=== PATIENT | female | born 1945 | race Caucasian/White ===

== ENCOUNTER 2021-09-27 11:10 | Inpatient (IN) | payer OTHER, SELFPAY ==
[~2021-09-27] VITALS: Ht 165.1 cm; Wt 59.0 kg
[~2021-09-27 11:10] MED LIST: AMLO5TAB4 PO; CELE100C PO; LOSA1TAB40 PO; METO50TA7 PO; RIVA20TA PO; TRAM50TA2 PO
[2021-09-27 11:12] VITALS: BP_SYST 104
[2021-09-27 12:01] LABS: HEMATOCRIT 27.6 % (36-48); MEAN CORPUSCULAR VOLUME 94 fL (79.0-98.0)
[2021-09-27 12:08] LABS: BASOPHILS % (AUTO) 0.2 % (0.0-2.0); EOSINOPHILS % (AUTO) 0.1 % (0.0-4.0); HEMOGLOBIN 9.2 g/dL (12.0-16.0); LYMPHOCYTES # (AUTO) 1.5 K/uL (1.0-5.5); LYMPHOCYTES % (AUTO) 15.7 % (20.5-51.5); MEAN CORPUSCULAR HEMOGLOBIN 32 pg (27-31); MEAN CORPUSCULAR HGB CONC 33 % (32-36); MONOCYTES # (AUTO) 0.7 K/uL (0.0-1.0); MONOCYTES % (AUTO) 7.5 % (1.7-9.3); NEUTROPHILS # (AUTO) 7.3 K/uL (1.8-7.7); NEUTROPHILS % (AUTO) 76.5 % (40.0-70.0); PLATELET COUNT (AUTO) 322 K/uL (130-430); RED BLOOD CELL COUNT(AUTO) 2.93 MIL/uL (4.2-6.2); RED CELL DISTRIBUTION WIDTH 14.7 % (9.0-15.0); WHITE BLOOD COUNT (AUTO) 9.6 K/uL (4.8-10.8)
[2021-09-27 12:13] LABS: ANION GAP 6 (5-15); CALCIUM 10.3 mg/dL (8.4-11.0); CHLORIDE 99 mmol/L (98-107); CREATININE 0.71 mg/dL (0.55-1.30); GLUCOSE 98 mg/dL (70-99); POTASSIUM 3.2 mmol/L (3.5-5.1); SODIUM SERUM 132 mmol/L (136-145); UREA NITROGEN, BLOOD 36 mg/dL (8-21)
[2021-09-27 12:20] LABS: ALANINE AMINOTRANSFERASE 17 U/L (12-78); ALBUMIN 2.7 g/dL (3.4-4.8); ASPARTATE AMINOTRANSFERASE 14 U/L (10-37); TOTAL BILIRUBIN 0.8 mg/dL (0.0-1.0)
[2021-09-27] MEDS ORDERED: MORPHINE 4 MG INJ. 4 MG/ML VIAL IVP ONE (12:30)
[2021-09-27] MEDS ORDERED: PROCHLORPERAZINE EDISYLATE 10 MG/2 ML VIAL IVP ONE (12:30)
[2021-09-27] MEDS ORDERED: HYDROmorphone 1 MG/ML INJ. CARTRIDGE IVP PRN (13:15)
[2021-09-27] MEDS ORDERED: ONDANSETRON 4 MG ODT TAB PO PRN (13:15)
[2021-09-27] MEDS ORDERED: D5LR 1,000 ML IV SCH (13:15)
[2021-09-27] MEDS ORDERED: KCL 20 mEq in 100 mL (PREMIX) 100 ML IV ONE (14:00)
[2021-09-27] MEDS ORDERED: KCL 20 mEq in D5/0.45NS 1000mL 1,000 ML IV SCH (14:00)
[2021-09-27] MEDS ORDERED: POTASSIUM CHLORIDE 20 MEQ in D5LR 1,000 ML IV ONE (14:15)
[2021-09-27 15:35] VITALS: BP_SYST 101
[2021-09-27] MEDS ORDERED: COMMUNICATION ORDER XX ONE (18:15)
[2021-09-27 20:50] VITALS: BP_SYST 111
[2021-09-27 20:55] VITALS: BP_SYST 111
[2021-09-28 00:20] VITALS: BP_SYST 105
[2021-09-28] MEDS: D5LR 1,000 ML IV SCH ×2 (00:40→14:54)
[2021-09-28 03:30] LABS: BILIRUBIN,URINE NEGATIVE (NEGATIVE); BLOOD, URINE 3+ (NEGATIVE); CLARITY/URINE CLEAR (CLEAR); COLOR,URINE YELLOW (YELLOW); GLUCOSE,URINE NEGATIVE (NEGATIVE); KETONES,URINE NEGATIVE (NEGATIVE); LEUKOCYTE ESTERASE ,URINE 1+ (NEGATIVE); NITRITE, URINE NEGATIVE (NEGATIVE); PROTEIN URINE TRACE (NEGATIVE)
[2021-09-28 04:10] LABS: RBC,URINE 20-50 /HPF (0-3); URINE SULFO SALICYLIC ACID NEGATIVE (NEGATIVE)
[2021-09-28 04:11] LABS: BACTERIA,URINE None Seen /HPF (None Seen); CALCIUM OXALATE CRYSTALS,UR None Seen /HPF (None Seen); CALCIUM PHOSPHATE CRYSTALS,UR None Seen /HPF (None Seen); COARSE GRANULAR CASTS,URINE None Seen /LPF (None Seen); FINE GRANULAR CASTS,URINE None Seen /LPF (None Seen); MUCUS,URINE 1+ /LPF (None Seen); OTHER CASTS, URINE None Seen /LPF (None Seen); OTHER CRYSTALS,URINE None Seen /HPF (None Seen); TRICHOMONAS,URINE None Seen /HPF (None Seen); TRIPLE PHOSPHATE CRYSTAL,UR None Seen /HPF (None Seen); URINE AMORPHOUS PHOSPHATES None Seen /HPF (None Seen); WAXY CASTS,URINE None Seen /LPF (None Seen); WBC,URINE >100 /HPF (0-3); YEAST,URINE None Seen /HPF (None Seen)
[2021-09-28 07:35] LABS: INR 1.4 (0.8-1.2); PROTHROMBIN TIME 14.2 SECS (9.5-12.5)
[2021-09-28 08:00] VITALS: BP_SYST 111
[2021-09-28 08:42] LABS: ANION GAP 9 (5-15); CALCIUM 10.2 mg/dL (8.4-11.0); CHLORIDE 101 mmol/L (98-107); CREATININE 0.45 mg/dL (0.55-1.30); GLUCOSE 111 mg/dL (70-99); POTASSIUM 3.2 mmol/L (3.5-5.1); SODIUM SERUM 136 mmol/L (136-145); UREA NITROGEN, BLOOD 24 mg/dL (8-21)
[2021-09-28] MEDS ORDERED: POTASSIUM CHLORIDE 20 MEQ TAB.PRT.SR PO PRN (08:45)
[2021-09-28] MEDS ORDERED: DOCUSATE SODIUM 100 MG CAPSULE PO PRN (08:45)
[2021-09-28] MEDS ORDERED: MAGNESIUM SULFATE 50 ML IV PRN (08:45)
[2021-09-28] MEDS ORDERED: MORPHINE 2 MG/ML INJ. SYRINGE IVP PRN ×2 (08:45)
[2021-09-28] MEDS ORDERED: MUPIROCIN 2% TOPICAL OINTMENT 22 GM NS PRN (08:45)
[2021-09-28] MEDS ORDERED: ONDANSETRON HCL 4 MG/2 ML VIAL IVP PRN (08:45)
[2021-09-28] MEDS ORDERED: ZOLPIDEM TARTRATE 5 MG TABLET PO PRN (08:45)
[2021-09-28] MEDS ORDERED: ACETAMINOPHEN 325 MG TABLET PO PRN ×2 (08:45→09:45)
[2021-09-28] MEDS ORDERED: LORazepam 2 MG/ML VIAL IVP PRN (08:45)
[2021-09-28] MEDS ORDERED: NALOXONE HCL 0.4 MG/ML AMP (NARCAN) IVP PRN ×2 (08:45)
[2021-09-28] MEDS: cefTRIAXone 1 GM in D5W 50 ML IV SCH (09:00)
[2021-09-28] MEDS ORDERED: DEXAMETHASONE SOD PHOSPHATE 4 MG/ML VIAL IVP ONE (10:17)
[2021-09-28] MEDS ORDERED: ONDANSETRON HCL 4 MG/2 ML VIAL IVP ONE (10:17)
[2021-09-28] MEDS ORDERED: SUCCINYLCHOLINE CHLORIDE 20 MG/ML(QUELICIN) IVP ONE (10:17)
[2021-09-28] MEDS ORDERED: cefTRIAXone 1 GM VIAL IV ONE (10:17)
[2021-09-28] MEDS ORDERED: PROPOFOL 200MG/ 20ML VIAL (DIPRIVAN) IV ONE (10:17)
[2021-09-28] MEDS ORDERED: LR 1,000 ML IV.SOLN IV ONE (10:17)
[2021-09-28] MEDS ORDERED: DESFLURANE 15 MIN GAS INH ONE (10:17)
[2021-09-28] MEDS ORDERED: ACETAMINOPHEN I.V. 1000 MG 100 ML IV ONE (10:48)
[2021-09-28 12:22] VITALS: BP_SYST 132
[2021-09-28 13:49] LABS: TOTAL IRON BIND. CAPACITY 172 ug/dL (250-450)
[2021-09-28 16:35] VITALS: BP_SYST 124
[2021-09-28] MEDS: VANCOMYCIN HCL 1,000 MG in NS 250 ML IV SCH (18:05)
[2021-09-28] MEDS ORDERED: CELECOXIB 100 MG CAPSULE PO SCH (21:00)
[2021-09-28] MEDS: traMADol HCL HCL 50 MG TABLET (ULTRAM) PO PRN (22:02)
[2021-09-29 01:33] VITALS: BP_SYST 130
[2021-09-29] MEDS: D5LR 1,000 ML IV SCH ×3 (04:42→16:30)
[2021-09-29] MEDS: traMADol HCL HCL 50 MG TABLET (ULTRAM) PO PRN (04:49)
[2021-09-29 06:06] LABS: FOLATE (FOLIC ACID) 18.1 ng/mL (>3.0)
[2021-09-29 07:49] LABS: BASOPHILS % (AUTO) 0.2 % (0.0-2.0); EOSINOPHILS # (AUTO) 0.1 K/uL (0.0-0.4); EOSINOPHILS % (AUTO) 0.7 % (0.0-4.0); HEMOGLOBIN 8.1 g/dL (12.0-16.0); LYMPHOCYTES # (AUTO) 1.3 K/uL (1.0-5.5); LYMPHOCYTES % (AUTO) 13.4 % (20.5-51.5); MEAN CORPUSCULAR HEMOGLOBIN 32 pg (27-31); MEAN CORPUSCULAR HGB CONC 34 % (32-36); MEAN CORPUSCULAR VOLUME 94 fL (79.0-98.0); MONOCYTES # (AUTO) 0.6 K/uL (0.0-1.0); MONOCYTES % (AUTO) 6.6 % (1.7-9.3); NEUTROPHILS # (AUTO) 7.7 K/uL (1.8-7.7); NEUTROPHILS % (AUTO) 79.1 % (40.0-70.0); PLATELET COUNT (AUTO) 274 K/uL (130-430); RED BLOOD CELL COUNT(AUTO) 2.55 MIL/uL (4.2-6.2); RED CELL DISTRIBUTION WIDTH 15.5 % (9.0-15.0); WHITE BLOOD COUNT (AUTO) 9.8 K/uL (4.8-10.8)
[2021-09-29 07:54] LABS: ANION GAP 6 (5-15); CALCIUM 10.3 mg/dL (8.4-11.0); CHLORIDE 106 mmol/L (98-107); CREATININE 0.36 mg/dL (0.55-1.30); GLUCOSE 93 mg/dL (70-99); POTASSIUM 3.6 mmol/L (3.5-5.1); SODIUM SERUM 138 mmol/L (136-145); UREA NITROGEN, BLOOD 18 mg/dL (8-21)
[2021-09-29 08:00] VITALS: BP_SYST 117
[2021-09-29] MEDS: amLODIPine BESYLATE 5 MG TABLET PO SCH (08:54)
[2021-09-29] MEDS: METOPROLOL SUCCINATE 50 MG TAB.SR.24H (TOPROL XL) PO SCH (08:54)
[2021-09-29] MEDS: RIVAROXABAN 10 MG TABLET PO SCH (08:56)
[2021-09-29] MEDS: cefTRIAXone 1 GM in D5W 50 ML IV SCH (10:49)
[2021-09-29 12:00] VITALS: BP_SYST 101
[2021-09-29] MEDS: LOSARTAN POTASSIUM 50 MG TABLET (COZAAR) PO SCH (13:08)
[2021-09-29] MEDS: HYDROCHLOROTHIAZIDE 25 MG TABLET (HCTZ) PO SCH (13:09)
[2021-09-29 16:56] VITALS: BP_SYST 106
[2021-09-29] MEDS: VANCOMYCIN HCL 1,000 MG in NS 250 ML IV SCH (18:30)
[2021-09-29 20:12] LABS: BILIRUBIN,URINE NEGATIVE (NEGATIVE); BLOOD, URINE 1+ (NEGATIVE); COLOR,URINE YELLOW (YELLOW); GLUCOSE,URINE NEGATIVE (NEGATIVE); KETONES,URINE NEGATIVE (NEGATIVE); LEUKOCYTE ESTERASE ,URINE NEGATIVE (NEGATIVE); NITRITE, URINE NEGATIVE (NEGATIVE); PROTEIN URINE NEGATIVE (NEGATIVE)
[2021-09-29 20:31] LABS: CLARITY/URINE HAZY (CLEAR)
[2021-09-29 20:55] LABS: BACTERIA,URINE MODERATE /HPF (None Seen); RBC,URINE 50-80 /HPF (0-3); WBC,URINE 0-3 /HPF (0-3)
[2021-09-30 00:02] VITALS: BP_SYST 110
[2021-09-30] MEDS: D5LR 1,000 ML IV SCH ×3 (03:09→22:57)
[2021-09-30 04:00] VITALS: BP_SYST 121
[2021-09-30 07:00] LABS: BASOPHILS % (AUTO) 0.5 % (0.0-2.0); EOSINOPHILS # (AUTO) 0.3 K/uL (0.0-0.4); EOSINOPHILS % (AUTO) 4.8 % (0.0-4.0); HEMATOCRIT 24.5 % (36-48); HEMOGLOBIN 8.3 g/dL (12.0-16.0); LYMPHOCYTES # (AUTO) 1.9 K/uL (1.0-5.5); LYMPHOCYTES % (AUTO) 26.4 % (20.5-51.5); MEAN CORPUSCULAR HEMOGLOBIN 32 pg (27-31); MEAN CORPUSCULAR HGB CONC 34 % (32-36); MEAN CORPUSCULAR VOLUME 95 fL (79.0-98.0); MONOCYTES # (AUTO) 0.5 K/uL (0.0-1.0); NEUTROPHILS # (AUTO) 4.3 K/uL (1.8-7.7); NEUTROPHILS % (AUTO) 61.3 % (40.0-70.0); PLATELET COUNT (AUTO) 268 K/uL (130-430); RED BLOOD CELL COUNT(AUTO) 2.58 MIL/uL (4.2-6.2); RED CELL DISTRIBUTION WIDTH 15.7 % (9.0-15.0); WHITE BLOOD COUNT (AUTO) 7.1 K/uL (4.8-10.8)
[2021-09-30 08:12] LABS: ANION GAP 7 (5-15); CALCIUM 9.8 mg/dL (8.4-11.0); CHLORIDE 104 mmol/L (98-107); GLUCOSE 91 mg/dL (70-99); POTASSIUM 3.7 mmol/L (3.5-5.1); SODIUM SERUM 136 mmol/L (136-145); UREA NITROGEN, BLOOD 16 mg/dL (8-21)
[2021-09-30 08:15] VITALS: BP_SYST 129
[2021-09-30] MEDS ORDERED: BALSAM PERU/CASTOR OIL 56.7 GM OINT...G. TP SCH (09:00)
[2021-09-30] MEDS: LOSARTAN POTASSIUM 50 MG TABLET (COZAAR) PO SCH (09:22)
[2021-09-30] MEDS: HYDROCHLOROTHIAZIDE 25 MG TABLET (HCTZ) PO SCH (09:23)
[2021-09-30] MEDS: METOPROLOL SUCCINATE 50 MG TAB.SR.24H (TOPROL XL) PO SCH (09:23)
[2021-09-30] MEDS: amLODIPine BESYLATE 5 MG TABLET PO SCH (09:24)
[2021-09-30] MEDS: cefTRIAXone 1 GM in D5W 50 ML IV SCH (09:25)
[2021-09-30] MEDS: RIVAROXABAN 10 MG TABLET PO SCH (09:29)
[2021-09-30] MEDS: traMADol HCL HCL 50 MG TABLET (ULTRAM) PO PRN ×3 (10:50→22:07)
[2021-09-30 11:30] VITALS: BP_SYST 117
[2021-09-30 15:40] VITALS: BP_SYST 109
[2021-09-30] MEDS: VANCOMYCIN HCL 1,000 MG in NS 250 ML IV SCH (18:40)
[2021-09-30 20:00] VITALS: BP_SYST 136
[2021-10-01 01:00] VITALS: BP_SYST 122
[2021-10-01] MEDS: traMADol HCL HCL 50 MG TABLET (ULTRAM) PO PRN (04:48)
[2021-10-01 07:07] LABS: ANION GAP 4 (5-15); CALCIUM 9.7 mg/dL (8.4-11.0); CHLORIDE 101 mmol/L (98-107); CREATININE 0.41 mg/dL (0.55-1.30); GLUCOSE 88 mg/dL (70-99); POTASSIUM 3.1 mmol/L (3.5-5.1); SODIUM SERUM 134 mmol/L (136-145); UREA NITROGEN, BLOOD 13 mg/dL (8-21)
[2021-10-01 07:56] LABS: BASOPHILS % (AUTO) 0.5 % (0.0-2.0); EOSINOPHILS # (AUTO) 0.3 K/uL (0.0-0.4); EOSINOPHILS % (AUTO) 5.3 % (0.0-4.0); HEMATOCRIT 24.3 % (36-48); HEMOGLOBIN 8.3 g/dL (12.0-16.0); LYMPHOCYTES # (AUTO) 1.4 K/uL (1.0-5.5); LYMPHOCYTES % (AUTO) 22.5 % (20.5-51.5); MEAN CORPUSCULAR HEMOGLOBIN 32 pg (27-31); MEAN CORPUSCULAR HGB CONC 34 % (32-36); MEAN CORPUSCULAR VOLUME 94 fL (79.0-98.0); MONOCYTES # (AUTO) 0.5 K/uL (0.0-1.0); MONOCYTES % (AUTO) 7.6 % (1.7-9.3); NEUTROPHILS # (AUTO) 3.9 K/uL (1.8-7.7); NEUTROPHILS % (AUTO) 64.1 % (40.0-70.0); PLATELET COUNT (AUTO) 265 K/uL (130-430); RED BLOOD CELL COUNT(AUTO) 2.58 MIL/uL (4.2-6.2); RED CELL DISTRIBUTION WIDTH 15.3 % (9.0-15.0); WHITE BLOOD COUNT (AUTO) 6.1 K/uL (4.8-10.8)
[2021-10-01 08:00] VITALS: BP_SYST 116
[2021-10-01] MEDS: METOPROLOL SUCCINATE 50 MG TAB.SR.24H (TOPROL XL) PO SCH (09:06)
[2021-10-01] MEDS: LOSARTAN POTASSIUM 50 MG TABLET (COZAAR) PO SCH (09:07)
[2021-10-01] MEDS: amLODIPine BESYLATE 5 MG TABLET PO SCH (09:07)
[2021-10-01] MEDS: cefTRIAXone 1 GM in D5W 50 ML IV SCH (09:09)
[2021-10-01] MEDS: HYDROCHLOROTHIAZIDE 25 MG TABLET (HCTZ) PO SCH (09:09)
[2021-10-01] MEDS: D5LR 1,000 ML IV SCH (09:10)
[2021-10-01] MEDS: RIVAROXABAN 10 MG TABLET PO SCH (09:13)
[2021-10-01 10:26] VITALS: BP_SYST 116
[2021-10-01 11:24] VITALS: BP_SYST 101
== END 2021-10-01 11:45 | DRG 537 ==
LOC: SED 11:10 → SMU 13:02 → STU 09-28 09:54 → SMU 09-29 16:38
PROVIDERS: ADMIT General Practice; ATTEND General Practice
PROC: 0QS7XZZ Reposition Left Upper Femur, External Approach (ICD-10-PCS; principal; 2021-09-28 10:17)
DX: S73.005A Unspecified dislocation of left hip, initial encounter (principal); L89.154 Pressure ulcer of sacral region, stage 4; E44.0 Moderate protein-calorie malnutrition; N39.0 Urinary tract infection, site not specified; E87.1 Hypo-osmolality and hyponatremia; T84.021A Dislocation of internal left hip prosthesis, initial encounter; D63.8 Anemia in other chronic diseases classified elsewhere; E87.6 Hypokalemia; F02.80 Dementia in other diseases classified elsewhere, unspecified severity, without behavioral disturbance, psychotic disturbance, mood disturbance, and anxiety; G30.9 Alzheimer's disease, unspecified; I10 Essential (primary) hypertension; M16.0 Bilateral primary osteoarthritis of hip; M17.0 Bilateral primary osteoarthritis of knee; X58.XXXA Exposure to other specified factors, initial encounter; B96.20 Unspecified Escherichia coli [E. coli] as the cause of diseases classified elsewhere; Z96.641 Presence of right artificial hip joint; Z20.822 Contact with and (suspected) exposure to COVID-19; Z79.01 Long term (current) use of anticoagulants; Z79.899 Other long term (current) drug therapy; Y93.89 Activity, other specified; Y92.89 Other specified places as the place of occurrence of the external cause; Y99.8 Other external cause status; Z68.21 Body mass index [BMI] 21.0-21.9, adult
CPT/HCPCS: 36415; 71045; 72170-TC; 73501; 74018; 76770; 78315; 80048; 80053; 81000; 82607; 82728; 82746; 83036; 83540; 83550; 83735; 83880; 85025; 85610-TC; 85730-TC; 86886; 86900; 86901; 87081; 87086; 94010; 96374; 96375; 97110-GP; 97116-GP; 97163-GP; 97530-GP; 99285; A9503; G0378; J0131; J0330; J0696; J0780; J1100; J2270; J2405; J2704; J3370; J3480; J7050; J7060; J7120

== ENCOUNTER 2023-02-28 16:40 | Inpatient (IN) | payer OTHER ==
[~2023-02-28] VITALS: Ht 165.1 cm; Wt 53.8 kg
[~2023-02-28 16:40] MED LIST changes: -AMLO5TAB4 PO; -CELE100C PO; +DONE10TA44 PO; +ESCI10TA PO; +HYDR25TA4 PO; +LOSA100T4 PO; -LOSA1TAB40 PO; +MEMA10TA PO; +POTA-88 PO
[2023-02-28 16:55] VITALS: BP_SYST 105; PULSE 68; RESP 19; TEMP 98; O2SAT 99
[2023-02-28] MEDS ORDERED: KETOROLAC TROMETHAMINE 30 MG VIAL IVP ONE (17:30)
[2023-02-28] MEDS ORDERED: NACL 0.9% 1,000 ML IV ONE (17:30)
[2023-02-28 18:38] LABS: BASOPHILS # (AUTO) 0.1 K/uL (0.0-0.2); BASOPHILS % (AUTO) 0.5 % (0.0-2.0); EOSINOPHILS # (AUTO) 0.1 K/uL (0.0-0.4); EOSINOPHILS % (AUTO) 0.9 % (0.0-4.0); HEMATOCRIT 33.2 % (36-48); INR 1.5 (0.8-1.2); LYMPHOCYTES # (AUTO) 1.7 K/uL (1.0-5.5); LYMPHOCYTES % (AUTO) 14.8 % (20.5-51.5); MEAN CORPUSCULAR HEMOGLOBIN 31 pg (27-31); MEAN CORPUSCULAR HGB CONC 33 % (32-36); MEAN CORPUSCULAR VOLUME 92 fL (79.0-98.0); MONOCYTES # (AUTO) 0.5 K/uL (0.0-1.0); MONOCYTES % (AUTO) 4.3 % (1.7-9.3); NEUTROPHILS # (AUTO) 8.9 K/uL (1.8-7.7); NEUTROPHILS % (AUTO) 79.5 % (40.0-70.0); PLATELET COUNT (AUTO) 177 K/uL (130-430); PROTHROMBIN TIME 15.4 SECS (9.5-12.5); RED CELL DISTRIBUTION WIDTH 16.3 % (9.0-15.0); WHITE BLOOD COUNT (AUTO) 11.2 K/uL (4.8-10.8)
[2023-02-28 18:49] LABS: ALANINE AMINOTRANSFERASE 8 U/L (12-78); ALBUMIN 3.2 g/dL (3.4-4.8); ANION GAP 10 (5-15); ASPARTATE AMINOTRANSFERASE 17 U/L (10-37); CALCIUM 9.8 mg/dL (8.4-11.0); CARBON DIOXIDE 29 mmol/L (23-29); CHLORIDE 95 mmol/L (98-107); CREATININE 0.23 mg/dL (0.55-1.30); GLUCOSE 111 mg/dL (74-106); SODIUM SERUM 134 mmol/L (136-145); TOTAL BILIRUBIN 2.2 mg/dL (0.0-1.0); TOTAL PROTEIN, SERUM 6.9 g/dL (6.4-8.3); UREA NITROGEN, BLOOD 7 mg/dL (8-21)
[2023-02-28 18:51] LABS: POTASSIUM 2.7 mmol/L (3.5-5.1)
[2023-02-28 18:53] LABS: BILIRUBIN,URINE NEGATIVE (NEGATIVE); BLOOD, URINE 2+ (NEGATIVE); CLARITY/URINE CLOUDY (CLEAR); COLOR,URINE YELLOW (YELLOW); GLUCOSE,URINE NEGATIVE (NEGATIVE); KETONES,URINE NEGATIVE (NEGATIVE); LEUKOCYTE ESTERASE ,URINE 2+ (NEGATIVE); NITRITE, URINE NEGATIVE (NEGATIVE); PH,URINE 7.5 (5.0-8.0); PROTEIN URINE NEGATIVE (NEGATIVE); UROBILINOGEN,URINE 0.2 (0.2-1.0)
[2023-02-28 18:54] LABS: BACTERIA,URINE MANY /HPF (None Seen); WBC,URINE 50-80 /HPF (0-3)
[2023-02-28] MEDS ORDERED: MEGE400O4 PO (19:49)
[2023-02-28] MEDS ORDERED: MAGNESIUM SULFATE 50 ML IV PRN (20:45)
[2023-02-28] MEDS ORDERED: ZOLPIDEM TARTRATE 5 MG TABLET PO PRN (20:45)
[2023-02-28] MEDS ORDERED: LORazepam 2 MG/ML VIAL IVP PRN (20:45)
[2023-02-28] MEDS ORDERED: NALOXONE HCL 0.4 MG/ML AMP (NARCAN) IVP PRN ×2 (20:45)
[2023-02-28] MEDS ORDERED: DOCUSATE SODIUM 100 MG CAPSULE PO PRN (20:45)
[2023-02-28] MEDS ORDERED: ACETAMINOPHEN 325 MG TABLET PO PRN ×2 (20:45)
[2023-02-28] MEDS ORDERED: POTASSIUM CHLORIDE 20 MEQ TAB.PRT.SR PO ONE (20:45)
[2023-02-28] MEDS ORDERED: MUPIROCIN 2% TOPICAL OINTMENT 22 GM NS PRN (20:45)
[2023-02-28] MEDS ORDERED: MORPHINE 2 MG/ML INJ. SYRINGE IVP PRN ×2 (20:45)
[2023-02-28] MEDS ORDERED: ESCITALOPRAM OXALATE 10 MG TABLET PO SCH (21:00)
[2023-02-28 21:17] VITALS: BP_SYST 128; PULSE 97; RESP 18; TEMP 97.4
[2023-02-28] MEDS: CITALOPRAM HYDROBROMIDE 20 MG TABLET PO SCH (21:36)
[2023-02-28] MEDS: NACL 0.9% 1,000 ML IV SCH (21:37)
[2023-02-28] MEDS: cefTRIAXone 1 GM in D5W 50 ML IV SCH (21:38)
[2023-03-01] MEDS: ONDANSETRON HCL 4 MG/2 ML VIAL IVP PRN ×2 (01:20→20:42)
[2023-03-01 02:37] VITALS: BP_SYST 131; PULSE 96; RESP 17; TEMP 98.4; O2SAT 96
[2023-03-01 05:32] LABS: ANION GAP 6 (5-15); CALCIUM 8.9 mg/dL (8.4-11.0); CARBON DIOXIDE 29 mmol/L (23-29); CHLORIDE 99 mmol/L (98-107); GLUCOSE 97 mg/dL (74-106); POTASSIUM 3.4 mmol/L (3.5-5.1); SODIUM SERUM 134 mmol/L (136-145); UREA NITROGEN, BLOOD 10 mg/dL (8-21)
[2023-03-01 05:36] LABS: BASOPHILS # (AUTO) 0.1 K/uL (0.0-0.2); BASOPHILS % (AUTO) 0.4 % (0.0-2.0); EOSINOPHILS % (AUTO) 0.1 % (0.0-4.0); HEMATOCRIT 25.4 % (36-48); HEMOGLOBIN 8.7 g/dL (12.0-16.0); LYMPHOCYTES # (AUTO) 1.4 K/uL (1.0-5.5); LYMPHOCYTES % (AUTO) 9.9 % (20.5-51.5); MEAN CORPUSCULAR HEMOGLOBIN 31 pg (27-31); MEAN CORPUSCULAR HGB CONC 34 % (32-36); MEAN CORPUSCULAR VOLUME 92 fL (79.0-98.0); MONOCYTES # (AUTO) 0.4 K/uL (0.0-1.0); NEUTROPHILS # (AUTO) 12.1 K/uL (1.8-7.7); NEUTROPHILS % (AUTO) 86.6 % (40.0-70.0); PLATELET COUNT (AUTO) 134 K/uL (130-430); RED BLOOD CELL COUNT(AUTO) 2.76 MIL/uL (4.2-6.2); RED CELL DISTRIBUTION WIDTH 15.9 % (9.0-15.0)
[2023-03-01 07:00] VITALS: O2SAT 95
[2023-03-01 08:00] VITALS: BP_SYST 148; PULSE 84; RESP 16; TEMP 96.2; O2SAT 95
[2023-03-01] MEDS: DONEPEZIL HCL 5 MG TABLET (ARICEPT) PO SCH (08:05)
[2023-03-01] MEDS: HYDROCHLOROTHIAZIDE 25 MG TABLET (HCTZ) PO SCH (08:05)
[2023-03-01] MEDS: POTASSIUM CHLORIDE 20 MEQ TAB.PRT.SR PO PRN (11:35)
[2023-03-01 12:00] VITALS: BP_SYST 117; PULSE 84; RESP 18; TEMP 98.2; O2SAT 96
[2023-03-01] MEDS: NACL 0.9% 1,000 ML IV SCH (12:18)
[2023-03-01 16:00] VITALS: BP_SYST 128; PULSE 95; RESP 20; TEMP 98.8; O2SAT 96
[2023-03-01 20:00] VITALS: BP_SYST 148; PULSE 97; RESP 18; TEMP 97.2; O2SAT 96
[2023-03-01] MEDS: CITALOPRAM HYDROBROMIDE 20 MG TABLET PO SCH (20:41)
[2023-03-01] MEDS: cefTRIAXone 1 GM in D5W 50 ML IV SCH (20:41)
[2023-03-02 00:46] VITALS: BP_SYST 147; PULSE 94; RESP 16; TEMP 97.8; O2SAT 96
[2023-03-02] MEDS: NACL 0.9% 1,000 ML IV SCH ×3 (03:14→20:33)
[2023-03-02 05:50] LABS: BASOPHILS # (AUTO) 0.1 K/uL (0.0-0.2); BASOPHILS % (AUTO) 0.9 % (0.0-2.0); EOSINOPHILS # (AUTO) 0.1 K/uL (0.0-0.4); EOSINOPHILS % (AUTO) 1.6 % (0.0-4.0); HEMATOCRIT 26.6 % (36-48); HEMOGLOBIN 9.1 g/dL (12.0-16.0); LYMPHOCYTES # (AUTO) 1.8 K/uL (1.0-5.5); LYMPHOCYTES % (AUTO) 26.7 % (20.5-51.5); MEAN CORPUSCULAR HEMOGLOBIN 32 pg (27-31); MEAN CORPUSCULAR HGB CONC 34 % (32-36); MEAN CORPUSCULAR VOLUME 93 fL (79.0-98.0); MONOCYTES # (AUTO) 0.6 K/uL (0.0-1.0); MONOCYTES % (AUTO) 8.4 % (1.7-9.3); NEUTROPHILS # (AUTO) 4.3 K/uL (1.8-7.7); NEUTROPHILS % (AUTO) 62.4 % (40.0-70.0); PLATELET COUNT (AUTO) 137 K/uL (130-430); RED BLOOD CELL COUNT(AUTO) 2.87 MIL/uL (4.2-6.2); RED CELL DISTRIBUTION WIDTH 16.2 % (9.0-15.0); WHITE BLOOD COUNT (AUTO) 6.9 K/uL (4.8-10.8)
[2023-03-02 06:01] LABS: ANION GAP 7 (5-15); CARBON DIOXIDE 28 mmol/L (23-29); CHLORIDE 101 mmol/L (98-107); CREATININE 0.23 mg/dL (0.55-1.30); GLUCOSE 97 mg/dL (74-106); POTASSIUM 3.3 mmol/L (3.5-5.1); SODIUM SERUM 136 mmol/L (136-145); UREA NITROGEN, BLOOD 5 mg/dL (8-21)
[2023-03-02 08:00] VITALS: BP_SYST 142; PULSE 96; RESP 18; TEMP 97.9; O2SAT 96
[2023-03-02] MEDS ORDERED: MEDR10TA72 PO (08:40)
[2023-03-02] MEDS ORDERED: LEVO-62 PO (08:43)
[2023-03-02] MEDS: DONEPEZIL HCL 5 MG TABLET (ARICEPT) PO SCH (09:07)
[2023-03-02] MEDS: HYDROCHLOROTHIAZIDE 25 MG TABLET (HCTZ) PO SCH (09:07)
[2023-03-02 12:57] VITALS: BP_SYST 136; PULSE 95; RESP 17; TEMP 97.4; O2SAT 97
[2023-03-02] MEDS: POTASSIUM CHLORIDE 20 MEQ TAB.PRT.SR PO PRN (15:29)
[2023-03-02 16:00] VITALS: BP_SYST 139; PULSE 97; RESP 16; TEMP 97.8; O2SAT 96
[2023-03-02 20:05] VITALS: BP_SYST 131; PULSE 78; RESP 18; TEMP 96.6; O2SAT 97
[2023-03-02] MEDS: CITALOPRAM HYDROBROMIDE 20 MG TABLET PO SCH (20:32)
[2023-03-02] MEDS: cefTRIAXone 1 GM in D5W 50 ML IV SCH (20:33)
[2023-03-03 00:56] VITALS: BP_SYST 145; PULSE 98; RESP 16; TEMP 96.3; O2SAT 98
[2023-03-03 05:55] LABS: BASOPHILS # (AUTO) 0.1 K/uL (0.0-0.2); BASOPHILS % (AUTO) 0.9 % (0.0-2.0); EOSINOPHILS # (AUTO) 0.2 K/uL (0.0-0.4); EOSINOPHILS % (AUTO) 2.9 % (0.0-4.0); HEMATOCRIT 27.2 % (36-48); HEMOGLOBIN 9.1 g/dL (12.0-16.0); LYMPHOCYTES # (AUTO) 2.1 K/uL (1.0-5.5); LYMPHOCYTES % (AUTO) 23.9 % (20.5-51.5); MEAN CORPUSCULAR HEMOGLOBIN 31 pg (27-31); MEAN CORPUSCULAR HGB CONC 34 % (32-36); MEAN CORPUSCULAR VOLUME 93 fL (79.0-98.0); MONOCYTES # (AUTO) 0.5 K/uL (0.0-1.0); MONOCYTES % (AUTO) 6.3 % (1.7-9.3); NEUTROPHILS # (AUTO) 5.7 K/uL (1.8-7.7); PLATELET COUNT (AUTO) 150 K/uL (130-430); RED BLOOD CELL COUNT(AUTO) 2.93 MIL/uL (4.2-6.2); RED CELL DISTRIBUTION WIDTH 15.8 % (9.0-15.0); WHITE BLOOD COUNT (AUTO) 8.6 K/uL (4.8-10.8)
[2023-03-03 06:04] LABS: ANION GAP 7 (5-15); CARBON DIOXIDE 28 mmol/L (23-29); CHLORIDE 98 mmol/L (98-107); GLUCOSE 92 mg/dL (74-106); POTASSIUM 3.2 mmol/L (3.5-5.1); SODIUM SERUM 133 mmol/L (136-145); UREA NITROGEN, BLOOD 6 mg/dL (8-21)
[2023-03-03 08:00] VITALS: BP_SYST 155; PULSE 95; RESP 15; TEMP 97.9; O2SAT 95
[2023-03-03] MEDS: HYDROCHLOROTHIAZIDE 25 MG TABLET (HCTZ) PO SCH (10:26)
[2023-03-03] MEDS: POTASSIUM CHLORIDE 20 MEQ TAB.PRT.SR PO PRN (10:27)
[2023-03-03] MEDS: DONEPEZIL HCL 5 MG TABLET (ARICEPT) PO SCH (10:27)
[2023-03-03] MEDS: NACL 0.9% 1,000 ML IV SCH (10:33)
[2023-03-03 12:00] VITALS: BP_SYST 157; PULSE 92; RESP 16; TEMP 97.4; O2SAT 97
[2023-03-03 13:22] VITALS: BP_SYST 157; PULSE 92; RESP 16; TEMP 97.4; O2SAT 97
== END 2023-03-03 14:20 | DRG 760 ==
LOC: SED 16:40 → STU 19:42 → SMU 03-02 10:32
PROVIDERS: ADMIT General Practice; ATTEND General Practice
DX: N93.9 Abnormal uterine and vaginal bleeding, unspecified (principal); E44.1 Mild protein-calorie malnutrition; E87.1 Hypo-osmolality and hyponatremia; N39.0 Urinary tract infection, site not specified; Z68.1 Body mass index [BMI] 19.9 or less, adult; R71.0 Precipitous drop in hematocrit; R19.09 Other intra-abdominal and pelvic swelling, mass and lump; N85.9 Noninflammatory disorder of uterus, unspecified; E87.6 Hypokalemia; E78.5 Hyperlipidemia, unspecified; I25.10 Atherosclerotic heart disease of native coronary artery without angina pectoris; G30.9 Alzheimer's disease, unspecified; I10 Essential (primary) hypertension; F02.A0 Dementia in other diseases classified elsewhere, mild, without behavioral disturbance, psychotic disturbance, mood disturbance, and anxiety; E80.6 Other disorders of bilirubin metabolism; Z74.01 Bed confinement status
CPT/HCPCS: 36415; 71045; 76376; 78226; 80048; 80053; 81000; 83037; 83735; 85025; 85610-TC; 85730-TC; 87086; 93306; 96361; 96374; 97110-GP; 97163-GP; 97530-GP; 99285; A9537; G0378; J0696; J1885; J2405; J7030; J7060

== ENCOUNTER 2023-03-15 14:55 | Emergency (ER) | payer OTHER ==
[~2023-03-15] VITALS: Ht 167.6 cm; Wt 75.7 kg
[~2023-03-15 14:55] MED LIST changes: +LEVO-62 PO; +LOSA-415 PO; -LOSA100T4 PO; +MEDR10TA72 PO; -MEMA10TA PO; +POTA-360 PO; -POTA-88 PO; -RIVA20TA PO
[2023-03-15 15:28] VITALS: BP_SYST 137; PULSE 71; RESP 20; TEMP 98; O2SAT 96
[2023-03-15] MEDS ORDERED: NACL 0.9% 1,000 ML IV ONE (15:30)
[2023-03-15 16:06] LABS: BASOPHILS # (AUTO) 0.1 K/uL (0.0-0.2); BASOPHILS % (AUTO) 0.9 % (0.0-2.0); EOSINOPHILS # (AUTO) 0.1 K/uL (0.0-0.4); EOSINOPHILS % (AUTO) 0.8 % (0.0-4.0); HEMATOCRIT 32.4 % (36-48); HEMOGLOBIN 10.7 g/dL (12.0-16.0); LYMPHOCYTES # (AUTO) 1.9 K/uL (1.0-5.5); LYMPHOCYTES % (AUTO) 19.4 % (20.5-51.5); MEAN CORPUSCULAR HEMOGLOBIN 30 pg (27-31); MEAN CORPUSCULAR HGB CONC 33 % (32-36); MEAN CORPUSCULAR VOLUME 92 fL (79.0-98.0); MONOCYTES # (AUTO) 0.5 K/uL (0.0-1.0); MONOCYTES % (AUTO) 5.6 % (1.7-9.3); NEUTROPHILS # (AUTO) 7.2 K/uL (1.8-7.7); NEUTROPHILS % (AUTO) 73.3 % (40.0-70.0); PLATELET COUNT (AUTO) 204 K/uL (130-430); RED BLOOD CELL COUNT(AUTO) 3.54 MIL/uL (4.2-6.2); RED CELL DISTRIBUTION WIDTH 15.6 % (9.0-15.0); WHITE BLOOD COUNT (AUTO) 9.8 K/uL (4.8-10.8)
[2023-03-15 16:20] LABS: INR 1.2 (0.8-1.2)
[2023-03-15 16:31] LABS: ANION GAP 6 (5-15); CALCIUM 9.4 mg/dL (8.4-11.0); CARBON DIOXIDE 26 mmol/L (23-29); CHLORIDE 99 mmol/L (98-107); CREATININE 0.42 mg/dL (0.55-1.30); GLUCOSE 107 mg/dL (74-106); POTASSIUM 4.1 mmol/L (3.5-5.1); SODIUM SERUM 131 mmol/L (136-145); UREA NITROGEN, BLOOD 12 mg/dL (8-21)
[2023-03-15 16:34] LABS: ALANINE AMINOTRANSFERASE 7 U/L (12-78); ALBUMIN 3.1 g/dL (3.4-4.8); ASPARTATE AMINOTRANSFERASE 15 U/L (10-37); TOTAL BILIRUBIN 1.6 mg/dL (0.0-1.0); TOTAL PROTEIN, SERUM 6.3 g/dL (6.4-8.3)
[2023-03-15 18:24] VITALS: BP_SYST 136; PULSE 80; RESP 18; TEMP 98; O2SAT 98
== END 2023-03-15 18:24 | disposition home or self-care (01) ==
LOC: SED 14:55
DX: C57.9 Malignant neoplasm of female genital organ, unspecified (principal); N93.9 Abnormal uterine and vaginal bleeding, unspecified; I10 Essential (primary) hypertension; Z79.899 Other long term (current) drug therapy
CPT/HCPCS: 99285; 96360; 71045; 80053; 83880; 85025; 85610; 85730; 86886; 86900; 86901; 84484; 36415; 93005; J7030

== ENCOUNTER 2023-06-26 22:44 | Inpatient (IN) | payer OTHER ==
[~2023-06-26] VITALS: Ht 165.1 cm; Wt 58.1 kg
[2023-06-26 22:57] VITALS: BP_SYST 153; PULSE 90; RESP 18; TEMP 97.6; O2SAT 95
[2023-06-26] MEDS ORDERED: cefTRIAXone 1 GM in D5W 50 ML IV ONE (23:15)
[2023-06-26] MEDS ORDERED: cefTRIAXone 1 GM VIAL ONE (23:33)
[2023-06-27 00:18] LABS: ANION GAP 6 (5-15); CARBON DIOXIDE 31 mmol/L (23-29); CHLORIDE 91 mmol/L (98-107); GLUCOSE 97 mg/dL (74-106); POTASSIUM 3.2 mmol/L (3.5-5.1); SODIUM SERUM 128 mmol/L (136-145); UREA NITROGEN, BLOOD 10 mg/dL (8-21)
[2023-06-27 00:22] LABS: BASOPHILS % (AUTO) 0.3 % (0.0-2.0); EOSINOPHILS % (AUTO) 0.4 % (0.0-4.0); HEMATOCRIT 27.4 % (36-48); HEMOGLOBIN 9.4 g/dL (12.0-16.0); LYMPHOCYTES # (AUTO) 0.9 K/uL (1.0-5.5); LYMPHOCYTES % (AUTO) 9.1 % (20.5-51.5); MEAN CORPUSCULAR HEMOGLOBIN 29 pg (27-31); MEAN CORPUSCULAR HGB CONC 34 % (32-36); MEAN CORPUSCULAR VOLUME 83 fL (79.0-98.0); MONOCYTES # (AUTO) 0.4 K/uL (0.0-1.0); MONOCYTES % (AUTO) 3.9 % (1.7-9.3); NEUTROPHILS % (AUTO) 86.3 % (40.0-70.0); PLATELET COUNT (AUTO) 189 K/uL (130-430); RED BLOOD CELL COUNT(AUTO) 3.29 MIL/uL (4.2-6.2); RED CELL DISTRIBUTION WIDTH 18.9 % (9.0-15.0); WHITE BLOOD COUNT (AUTO) 10.4 K/uL (4.8-10.8)
[2023-06-27 00:45] LABS: BILIRUBIN,URINE NEGATIVE (NEGATIVE); BLOOD, URINE 3+ (NEGATIVE); CLARITY/URINE SL CLOUDY (CLEAR); COLOR,URINE YELLOW (YELLOW); GLUCOSE,URINE NEGATIVE (NEGATIVE); KETONES,URINE 1+ (NEGATIVE); LEUKOCYTE ESTERASE ,URINE 2+ (NEGATIVE); NITRITE, URINE POSITIVE (NEGATIVE); PROTEIN URINE 1+ (NEGATIVE); UROBILINOGEN,URINE 0.2 (0.2-1.0)
[2023-06-27 02:19] LABS: RBC,URINE 80-100 /HPF (0-3)
[2023-06-27 02:20] LABS: BACTERIA,URINE MANY /HPF (None Seen); WBC,URINE >100 /HPF (0-3)
[2023-06-27] MEDS ORDERED: POTASSIUM CHLORIDE 20 MEQ/PKT PACKET PO ONE (03:15)
[2023-06-27] MEDS ORDERED: NACL 0.9% 1,000 ML IV SCH (03:15)
[2023-06-27] MEDS ORDERED: FUROSEMIDE 20 MG/2 ML VIAL IVP ONE (03:15)
[2023-06-27] MEDS ORDERED: DONE10TA44 PO (03:29)
[2023-06-27] MEDS ORDERED: MEMA10TA PO (03:29)
[2023-06-27] MEDS ORDERED: RIVA20TA PO (03:29)
[2023-06-27 05:42] LABS: BASOPHILS % (AUTO) 0.4 % (0.0-2.0); EOSINOPHILS % (AUTO) 0.2 % (0.0-4.0); HEMATOCRIT 25.3 % (36-48); HEMOGLOBIN 8.7 g/dL (12.0-16.0); LYMPHOCYTES # (AUTO) 1.2 K/uL (1.0-5.5); LYMPHOCYTES % (AUTO) 10.7 % (20.5-51.5); MEAN CORPUSCULAR HEMOGLOBIN 28 pg (27-31); MEAN CORPUSCULAR HGB CONC 34 % (32-36); MEAN CORPUSCULAR VOLUME 83 fL (79.0-98.0); MONOCYTES # (AUTO) 0.4 K/uL (0.0-1.0); MONOCYTES % (AUTO) 3.7 % (1.7-9.3); NEUTROPHILS # (AUTO) 9.2 K/uL (1.8-7.7); PLATELET COUNT (AUTO) 184 K/uL (130-430); RED BLOOD CELL COUNT(AUTO) 3.06 MIL/uL (4.2-6.2); RED CELL DISTRIBUTION WIDTH 18.5 % (9.0-15.0); WHITE BLOOD COUNT (AUTO) 10.8 K/uL (4.8-10.8)
[2023-06-27 05:55] LABS: ALANINE AMINOTRANSFERASE 9 U/L (12-78); ALBUMIN 2.5 g/dL (3.4-4.8); ANION GAP 8 (5-15); ASPARTATE AMINOTRANSFERASE 17 U/L (10-37); CALCIUM 8.6 mg/dL (8.4-11.0); CARBON DIOXIDE 29 mmol/L (23-29); CHLORIDE 92 mmol/L (98-107); CREATININE 0.33 mg/dL (0.55-1.30); GLUCOSE 95 mg/dL (74-106); POTASSIUM 3.1 mmol/L (3.5-5.1); SODIUM SERUM 129 mmol/L (136-145); TOTAL BILIRUBIN 1.1 mg/dL (0.0-1.0); TOTAL PROTEIN, SERUM 6.2 g/dL (6.4-8.3); UREA NITROGEN, BLOOD 9 mg/dL (8-21)
[2023-06-27] MEDS ORDERED: HYDROcodone/ACETAMIN 5-325 MG TAB (NORCO/ VICODIN) PO PRN (08:45)
[2023-06-27] MEDS ORDERED: NALOXONE HCL 0.4 MG/ML AMP (NARCAN) IVP PRN (08:45)
[2023-06-27] MEDS ORDERED: LOSARTAN POTASSIUM 50 MG TABLET (COZAAR) PO SCH (09:00)
[2023-06-27] MEDS ORDERED: HYDROCHLOROTHIAZIDE 25 MG TABLET (HCTZ) PO SCH (09:00)
[2023-06-27] MEDS: METOPROLOL SUCCINATE 50 MG TAB.SR.24H (TOPROL XL) PO SCH (10:51)
[2023-06-27] MEDS: IBUPROFEN 600 MG TABLET PO PRN (11:08)
[2023-06-27 12:23] VITALS: BP_SYST 130; PULSE 72; RESP 16; TEMP 98.3; O2SAT 95
[2023-06-27 12:44] VITALS: O2SAT 95
[2023-06-27] MEDS: NACL 0.9% 1,000 ML IV SCH (13:30)
[2023-06-27] MEDS ORDERED: MAGNESIUM SULFATE 50 ML IV PRN (13:30)
[2023-06-27] MEDS ORDERED: LORazepam 2 MG/ML VIAL IVP PRN (13:30)
[2023-06-27] MEDS ORDERED: MORPHINE 4 MG INJ. 4 MG/ML VIAL IVP PRN (13:30)
[2023-06-27] MEDS ORDERED: ONDANSETRON HCL 4 MG/2 ML VIAL IVP PRN (13:30)
[2023-06-27] MEDS ORDERED: MORPHINE 2 MG/ML INJ. SYRINGE IVP PRN (13:30)
[2023-06-27] MEDS ORDERED: NALOXONE HCL 2 MG/2 ML SYR IVP PRN (13:30)
[2023-06-27] MEDS ORDERED: POTASSIUM CHLORIDE 40 MEQ, LIDOCAINE JECT 2% PF 100 MG 50 MG in NS 250 ML IV PRN (13:30)
[2023-06-27 14:52] VITALS: BP_SYST 130; PULSE 72; RESP 17; TEMP 98.3
[2023-06-27 14:59] LABS: FREE T4 (FREE THYROXINE) 1.4 ng/dL (0.6-1.6); THYROID STIMULATING HORMONE 0.49 uIu/mL (0.34-4.82)
[2023-06-27 16:00] VITALS: BP_SYST 140; PULSE 76; RESP 17; TEMP 97.8; O2SAT 96
[2023-06-27] MEDS: RIVAROXABAN 10 MG TABLET PO SCH (17:25)
[2023-06-27] MEDS ORDERED: cefTRIAXone 1 GM IVPB PREMIX 50 ML IV SCH (21:00)
[2023-06-27] MEDS ORDERED: DONEPEZIL HCL 5 MG TABLET (ARICEPT) PO SCH ×2 (21:00)
[2023-06-28 00:47] LABS: BARBITURATE, URINE NEGATIVE (NEG <=200); BENZODIAZEPINE, URINE NEGATIVE (NEG <=150); CANNABINOID, URINE NEGATIVE (NEG <=50); COCAINE, URINE NEGATIVE (NEG <=150); METHAMPHETAMINES SCREEN,URINE NEGATIVE (NEG <=500); OPIATE, URINE NEGATIVE (NEG <=100); PHENCYCLIDINE SCREEN,URINE NEGATIVE (NEG <=25); UR TRICYCLIC ANTIDEPRESSANTS NEGATIVE (NEG <=300); URINE AMPHETAMINE NEGATIVE (NEG <=500); URINE METHADONE NEGATIVE (NEG <=200); URINE OXYCODONE SCREEN NEGATIVE (NEG <=100)
[2023-06-28 01:18] VITALS: BP_SYST 147; PULSE 65; RESP 18; TEMP 97.8; O2SAT 95
[2023-06-28 07:16] LABS: ALANINE AMINOTRANSFERASE 14 U/L (12-78); ALBUMIN 2.6 g/dL (3.4-4.8); ANION GAP 5 (5-15); ASPARTATE AMINOTRANSFERASE 14 U/L (10-37); CALCIUM 9.6 mg/dL (8.4-11.0); CARBON DIOXIDE 29 mmol/L (23-29); CHLORIDE 94 mmol/L (98-107); CHOLESTEROL 116 mg/dL (<200); GLUCOSE 93 mg/dL (74-106); HDL CHOLESTEROL 42 mg/dL (>55); LIPASE 17 U/L (16-77); PHOSPHORUS 2.5 mg/dL (2.7-4.5); POTASSIUM 3.1 mmol/L (3.5-5.1); SODIUM SERUM 128 mmol/L (136-145); THYROID STIMULATING HORMONE 0.56 uIu/mL (0.34-4.82); TOTAL BILIRUBIN 1.3 mg/dL (0.0-1.0); TOTAL PROTEIN, SERUM 6.5 g/dL (6.4-8.3); TRIGLYCERIDES 57 mg/dL (30-150); UREA NITROGEN, BLOOD 9 mg/dL (8-21)
[2023-06-28 07:38] LABS: INR 1.5 (0.8-1.2); PROTHROMBIN TIME 14.8 SECS (9.5-12.5)
[2023-06-28 07:39] LABS: BASOPHILS % (AUTO) 0.4 % (0.0-2.0); EOSINOPHILS # (AUTO) 0.1 K/uL (0.0-0.4); EOSINOPHILS % (AUTO) 0.5 % (0.0-4.0); HEMATOCRIT 26.8 % (36-48); HEMOGLOBIN 9.1 g/dL (12.0-16.0); LYMPHOCYTES # (AUTO) 1.4 K/uL (1.0-5.5); LYMPHOCYTES % (AUTO) 13.4 % (20.5-51.5); MEAN CORPUSCULAR HEMOGLOBIN 28 pg (27-31); MEAN CORPUSCULAR HGB CONC 34 % (32-36); MEAN CORPUSCULAR VOLUME 83 fL (79.0-98.0); MONOCYTES # (AUTO) 0.3 K/uL (0.0-1.0); MONOCYTES % (AUTO) 3.3 % (1.7-9.3); NEUTROPHILS # (AUTO) 8.5 K/uL (1.8-7.7); NEUTROPHILS % (AUTO) 82.4 % (40.0-70.0); PLATELET COUNT (AUTO) 186 K/uL (130-430); RED BLOOD CELL COUNT(AUTO) 3.24 MIL/uL (4.2-6.2); RED CELL DISTRIBUTION WIDTH 18.7 % (9.0-15.0); WHITE BLOOD COUNT (AUTO) 10.3 K/uL (4.8-10.8)
[2023-06-28 08:35] VITALS: BP_SYST 146; PULSE 65; RESP 18; TEMP 97.1; O2SAT 96
[2023-06-28] MEDS: METOPROLOL SUCCINATE 50 MG TAB.SR.24H (TOPROL XL) PO SCH (08:47)
[2023-06-28] MEDS: MEMANTINE HCL 5 MG TABLET PO SCH ×2 (08:47→23:52)
[2023-06-28] MEDS ORDERED: RIVAROXABAN 10 MG TABLET PO SCH (09:00)
[2023-06-28] MEDS: DONEPEZIL HCL 5 MG TABLET (ARICEPT) PO SCH (09:03)
[2023-06-28] MEDS: NACL 0.9% 1,000 ML IV SCH (09:03)
[2023-06-28] MEDS: cefTRIAXone 1 GM IVPB PREMIX 50 ML IV SCH (09:37)
[2023-06-28 09:38] VITALS: O2SAT 96
[2023-06-28 10:00] LABS: BASOPHILS % (AUTO) 0.4 % (0.0-2.0); EOSINOPHILS % (AUTO) 0.1 % (0.0-4.0); HEMATOCRIT 27.2 % (36-48); HEMOGLOBIN 9.3 g/dL (12.0-16.0); LYMPHOCYTES # (AUTO) 1.2 K/uL (1.0-5.5); LYMPHOCYTES % (AUTO) 11.8 % (20.5-51.5); MEAN CORPUSCULAR HEMOGLOBIN 28 pg (27-31); MEAN CORPUSCULAR HGB CONC 34 % (32-36); MEAN CORPUSCULAR VOLUME 83 fL (79.0-98.0); MONOCYTES # (AUTO) 0.4 K/uL (0.0-1.0); MONOCYTES % (AUTO) 3.7 % (1.7-9.3); NEUTROPHILS # (AUTO) 8.6 K/uL (1.8-7.7); PLATELET COUNT (AUTO) 183 K/uL (130-430); RED BLOOD CELL COUNT(AUTO) 3.28 MIL/uL (4.2-6.2); RED CELL DISTRIBUTION WIDTH 18.7 % (9.0-15.0); WHITE BLOOD COUNT (AUTO) 10.2 K/uL (4.8-10.8)
[2023-06-28] MEDS ORDERED: POTASSIUM CHLORIDE 20 MEQ TABLET.ER PO ONE (10:00)
[2023-06-28] MEDS ORDERED: SODIUM CHLORIDE 1,000 MG TABLET PO ONE (10:00)
[2023-06-28 10:11] LABS: ALANINE AMINOTRANSFERASE 10 U/L (12-78); ALBUMIN 2.6 g/dL (3.4-4.8); ANION GAP 5 (5-15); ASPARTATE AMINOTRANSFERASE 16 U/L (10-37); CALCIUM 9.4 mg/dL (8.4-11.0); CARBON DIOXIDE 29 mmol/L (23-29); CHLORIDE 95 mmol/L (98-107); GLUCOSE 114 mg/dL (74-106); SODIUM SERUM 129 mmol/L (136-145); TOTAL BILIRUBIN 1.4 mg/dL (0.0-1.0); TOTAL PROTEIN, SERUM 6.4 g/dL (6.4-8.3); UREA NITROGEN, BLOOD 9 mg/dL (8-21)
[2023-06-28 10:13] LABS: POTASSIUM 2.9 mmol/L (3.5-5.1)
[2023-06-28 11:11] VITALS: BP_SYST 146; PULSE 82; RESP 16; TEMP 96.9; O2SAT 100
[2023-06-28 15:30] VITALS: BP_SYST 156; PULSE 65; RESP 16; TEMP 97.5; O2SAT 96
[2023-06-28] MEDS: RIVAROXABAN 10 MG TABLET PO SCH (17:42)
[2023-06-28] MEDS ORDERED: VANCOMYCIN HCL 750 MG in NS 250 ML IV ONE (18:00)
[2023-06-28] MEDS ORDERED: POTASSIUM CHLORIDE 20 MEQ TABLET.ER PO PRN (20:30)
[2023-06-28] MEDS ORDERED: MAGNESIUM CHLORIDE 64 MG TABLET.DR PO PRN (20:30)
[2023-06-28] MEDS: CITALOPRAM HYDROBROMIDE 20 MG TABLET PO SCH (23:51)
[2023-06-29] VITALS (7 sets, daily range): BP systolic 132–155; PULSE 55–80; RESP 16–20; TEMP 96.8–98.7; O2SAT 80–97
[2023-06-29] MEDS: NACL 0.9% 1,000 ML IV SCH ×2 (00:05→18:16)
[2023-06-29 05:54] LABS: ERYTHROCYTE SEDIMENTATION RATE 22 MM/HR (0-20)
[2023-06-29 06:14] LABS: BASOPHILS # (AUTO) 0.1 K/uL (0.0-0.2); BASOPHILS % (AUTO) 0.6 % (0.0-2.0); EOSINOPHILS # (AUTO) 0.1 K/uL (0.0-0.4); EOSINOPHILS % (AUTO) 0.6 % (0.0-4.0); HEMATOCRIT 24.7 % (36-48); HEMOGLOBIN 8.3 g/dL (12.0-16.0); LYMPHOCYTES # (AUTO) 1.6 K/uL (1.0-5.5); LYMPHOCYTES % (AUTO) 18.1 % (20.5-51.5); MEAN CORPUSCULAR HEMOGLOBIN 28 pg (27-31); MEAN CORPUSCULAR HGB CONC 34 % (32-36); MEAN CORPUSCULAR VOLUME 83 fL (79.0-98.0); MONOCYTES # (AUTO) 0.5 K/uL (0.0-1.0); MONOCYTES % (AUTO) 5.4 % (1.7-9.3); NEUTROPHILS # (AUTO) 6.7 K/uL (1.8-7.7); NEUTROPHILS % (AUTO) 75.3 % (40.0-70.0); PLATELET COUNT (AUTO) 186 K/uL (130-430); RED BLOOD CELL COUNT(AUTO) 2.99 MIL/uL (4.2-6.2); RED CELL DISTRIBUTION WIDTH 18.1 % (9.0-15.0); WHITE BLOOD COUNT (AUTO) 8.9 K/uL (4.8-10.8)
[2023-06-29 06:30] LABS: ALANINE AMINOTRANSFERASE 10 U/L (12-78); ALBUMIN 2.4 g/dL (3.4-4.8); ANION GAP 5 (5-15); ASPARTATE AMINOTRANSFERASE 13 U/L (10-37); CALCIUM 9.3 mg/dL (8.4-11.0); CARBON DIOXIDE 26 mmol/L (23-29); CHLORIDE 99 mmol/L (98-107); CREATININE 0.36 mg/dL (0.55-1.30); GLUCOSE 97 mg/dL (74-106); PHOSPHORUS 2.5 mg/dL (2.7-4.5); POTASSIUM 3.9 mmol/L (3.5-5.1); SODIUM SERUM 130 mmol/L (136-145); TOTAL BILIRUBIN 1.1 mg/dL (0.0-1.0); TOTAL PROTEIN, SERUM 5.9 g/dL (6.4-8.3); UREA NITROGEN, BLOOD 9 mg/dL (8-21)
[2023-06-29] MEDS: METOPROLOL SUCCINATE 50 MG TAB.SR.24H (TOPROL XL) PO SCH (08:32)
[2023-06-29] MEDS: MEMANTINE HCL 5 MG TABLET PO SCH ×2 (08:32→20:43)
[2023-06-29] MEDS: cefTRIAXone 1 GM IVPB PREMIX 50 ML IV SCH (08:32)
[2023-06-29] MEDS: DONEPEZIL HCL 5 MG TABLET (ARICEPT) PO SCH (09:29)
[2023-06-29] MEDS: VANCOMYCIN HCL 750 MG in NS 250 ML IV SCH (09:35)
[2023-06-29] MEDS: RIVAROXABAN 10 MG TABLET PO SCH (18:15)
[2023-06-29] MEDS: CITALOPRAM HYDROBROMIDE 20 MG TABLET PO SCH (21:24)
[2023-06-30] VITALS: BP_SYST 148; PULSE 74; RESP 17; TEMP 98; O2SAT 96
[2023-06-30] MEDS: IBUPROFEN 600 MG TABLET PO PRN (01:39)
[2023-06-30 01:46] VITALS: BP_SYST 151; PULSE 76; RESP 18; TEMP 98.2; O2SAT 98
[2023-06-30 06:44] LABS: ALANINE AMINOTRANSFERASE 11 U/L (12-78); ALBUMIN 2.3 g/dL (3.4-4.8); ANION GAP 6 (5-15); ASPARTATE AMINOTRANSFERASE 13 U/L (10-37); CALCIUM 9.2 mg/dL (8.4-11.0); CARBON DIOXIDE 25 mmol/L (23-29); CHLORIDE 101 mmol/L (98-107); CREATININE 0.39 mg/dL (0.55-1.30); GLUCOSE 91 mg/dL (74-106); PHOSPHORUS 2.7 mg/dL (2.7-4.5); POTASSIUM 3.7 mmol/L (3.5-5.1); SODIUM SERUM 132 mmol/L (136-145); TOTAL BILIRUBIN 0.9 mg/dL (0.0-1.0); TOTAL PROTEIN, SERUM 5.8 g/dL (6.4-8.3); UREA NITROGEN, BLOOD 13 mg/dL (8-21)
[2023-06-30 06:46] LABS: BASOPHILS % (AUTO) 0.5 % (0.0-2.0); EOSINOPHILS # (AUTO) 0.2 K/uL (0.0-0.4); HEMATOCRIT 24.6 % (36-48); HEMOGLOBIN 8.4 g/dL (12.0-16.0); LYMPHOCYTES # (AUTO) 1.9 K/uL (1.0-5.5); LYMPHOCYTES % (AUTO) 22.9 % (20.5-51.5); MEAN CORPUSCULAR HEMOGLOBIN 28 pg (27-31); MEAN CORPUSCULAR HGB CONC 34 % (32-36); MEAN CORPUSCULAR VOLUME 83 fL (79.0-98.0); MONOCYTES # (AUTO) 0.5 K/uL (0.0-1.0); MONOCYTES % (AUTO) 5.6 % (1.7-9.3); NEUTROPHILS # (AUTO) 5.7 K/uL (1.8-7.7); PLATELET COUNT (AUTO) 181 K/uL (130-430); RED BLOOD CELL COUNT(AUTO) 2.96 MIL/uL (4.2-6.2); RED CELL DISTRIBUTION WIDTH 18.5 % (9.0-15.0); WHITE BLOOD COUNT (AUTO) 8.3 K/uL (4.8-10.8)
[2023-06-30 08:00] VITALS: BP_SYST 146; PULSE 77; RESP 17; TEMP 97.8; O2SAT 97; O2SAT 98
[2023-06-30] MEDS: NACL 0.9% 1,000 ML IV SCH (08:10)
[2023-06-30] MEDS: VANCOMYCIN HCL 750 MG in NS 250 ML IV SCH (08:49)
[2023-06-30] MEDS: cefTRIAXone 1 GM IVPB PREMIX 50 ML IV SCH (08:49)
[2023-06-30] MEDS: MEMANTINE HCL 5 MG TABLET PO SCH (08:49)
[2023-06-30] MEDS: METOPROLOL SUCCINATE 50 MG TAB.SR.24H (TOPROL XL) PO SCH (08:50)
[2023-06-30] MEDS: DONEPEZIL HCL 5 MG TABLET (ARICEPT) PO SCH (09:49)
[2023-06-30 11:15] VITALS: BP_SYST 129; PULSE 70; RESP 16; TEMP 97; O2SAT 96
[2023-06-30 15:03] VITALS: BP_SYST 141; PULSE 69; RESP 16; TEMP 97.7; O2SAT 95
[2023-06-30] MEDS ORDERED: LEVO-62 PO (15:29)
[2023-06-30] MEDS ORDERED: VANC750F2 IV (15:29)
[2023-06-30 15:49] VITALS: BP_SYST 141; PULSE 69; RESP 17; TEMP 97.7; O2SAT 95
== END 2023-06-30 17:02 | DRG 70 ==
LOC: SED 22:44 → SMU 06-27 03:03 → STU 06-27 11:20
DX: G93.41 Metabolic encephalopathy (principal); E43 Unspecified severe protein-calorie malnutrition; J18.9 Pneumonia, unspecified organism; N39.0 Urinary tract infection, site not specified; E87.1 Hypo-osmolality and hyponatremia; I48.20 Chronic atrial fibrillation, unspecified; D64.9 Anemia, unspecified; E86.0 Dehydration; E87.6 Hypokalemia; I44.7 Left bundle-branch block, unspecified; M54.9 Dorsalgia, unspecified; Z96.651 Presence of right artificial knee joint; Z20.822 Contact with and (suspected) exposure to COVID-19; I10 Essential (primary) hypertension; I36.1 Nonrheumatic tricuspid (valve) insufficiency; F03.90 Unspecified dementia, unspecified severity, without behavioral disturbance, psychotic disturbance, mood disturbance, and anxiety; I27.20 Pulmonary hypertension, unspecified; Z74.01 Bed confinement status; Z87.81 Personal history of (healed) traumatic fracture; Z79.01 Long term (current) use of anticoagulants; Z68.21 Body mass index [BMI] 21.0-21.9, adult
CPT/HCPCS: 36415; 71045; 72125-TC; 76376; 80048; 80053; 80061; 80307; 81000; 81001; 81015; 83037; 83605; 83690; 83735; 83880; 84100; 84439; 84443; 84484; 85025; 85610-TC; 85651-TC; 87040; 87086; 87186-TC; 93005; 97110-GP; 97112-GP; 97116-GP; 97530-GP; 99285; G0378; J0696; J1940; J2270; J3475; J3480; J7050

== ENCOUNTER 2023-10-08 12:11 | Emergency (ER) | payer OTHER ==
[~2023-10-08] VITALS: Ht 160 cm; Wt 49.9 kg
[~2023-10-08 12:11] MED LIST changes: -MEDR10TA72 PO; +MEMA10TA PO; +RIVA20TA PO; +VANC750F2 IV
[2023-10-08 12:25] VITALS: RESP 18; TEMP 97.8
[2023-10-08 13:52] LABS: BASOPHILS % (AUTO) 0.5 % (0.0-2.0); EOSINOPHILS # (AUTO) 0.1 K/uL (0.0-0.4); EOSINOPHILS % (AUTO) 1.3 % (0.0-4.0); HEMATOCRIT 32.3 % (36-48); HEMOGLOBIN 10.9 g/dL (12.0-16.0); LYMPHOCYTES # (AUTO) 2.1 K/uL (1.0-5.5); LYMPHOCYTES % (AUTO) 29.2 % (20.5-51.5); MEAN CORPUSCULAR HEMOGLOBIN 29 pg (27-31); MEAN CORPUSCULAR HGB CONC 34 % (32-36); MEAN CORPUSCULAR VOLUME 84 fL (79.0-98.0); MONOCYTES # (AUTO) 0.5 K/uL (0.0-1.0); MONOCYTES % (AUTO) 7.3 % (1.7-9.3); NEUTROPHILS # (AUTO) 4.5 K/uL (1.8-7.7); NEUTROPHILS % (AUTO) 61.7 % (40.0-70.0); PLATELET COUNT (AUTO) 199 K/uL (130-430); RED BLOOD CELL COUNT(AUTO) 3.83 MIL/uL (4.2-6.2); RED CELL DISTRIBUTION WIDTH 16.2 % (9.0-15.0); WHITE BLOOD COUNT (AUTO) 7.3 K/uL (4.8-10.8)
[2023-10-08 14:08] LABS: ANION GAP 7 (5-15); CALCIUM 9.5 mg/dL (8.4-11.0); CARBON DIOXIDE 27 mmol/L (23-29); CHLORIDE 95 mmol/L (98-107); CREATININE 0.44 mg/dL (0.55-1.30); GLUCOSE 93 mg/dL (74-106); POTASSIUM 3.3 mmol/L (3.5-5.1); SODIUM SERUM 129 mmol/L (136-145); UREA NITROGEN, BLOOD 13 mg/dL (8-21)
[2023-10-08 14:11] LABS: INR 2.1 (0.8-1.2); PROTHROMBIN TIME 20.9 SECS (9.5-12.5)
[2023-10-08 14:15] LABS: ALANINE AMINOTRANSFERASE 10 U/L (12-78); ALBUMIN 3.3 g/dL (3.4-4.8); ASPARTATE AMINOTRANSFERASE 15 U/L (10-37); BILIRUBIN,DIRECT 0.3 mg/dL (0.0-0.3); LIPASE 18 U/L (16-77); TOTAL BILIRUBIN 1.6 mg/dL (0.0-1.0); TOTAL PROTEIN, SERUM 6.9 g/dL (6.4-8.3)
[2023-10-08] MEDS: NACL 0.9% 1,000 ML IV ONE (15:13)
[2023-10-08 16:33] LABS: BILIRUBIN,URINE NEGATIVE (NEGATIVE); BLOOD, URINE 3+ (NEGATIVE); CLARITY/URINE CLOUDY (CLEAR); GLUCOSE,URINE NEGATIVE (NEGATIVE); KETONES,URINE NEGATIVE (NEGATIVE); LEUKOCYTE ESTERASE ,URINE 3+ (NEGATIVE); NITRITE, URINE POSITIVE (NEGATIVE); PROTEIN URINE 2+ (NEGATIVE)
[2023-10-08 16:44] LABS: COLOR,URINE YELLOW (YELLOW)
[2023-10-08 16:48] LABS: BACTERIA,URINE MANY /HPF (None Seen); MUCUS,URINE None Seen /LPF (None Seen); RBC,URINE 20-50 /HPF (0-3); WBC,URINE 50-80 /HPF (0-3)
[2023-10-08 18:26] VITALS: BP_SYST 147; PULSE 82; RESP 18; TEMP 98.2; O2SAT 99
== END 2023-10-08 18:26 | disposition home or self-care (01) ==
LOC: SED 12:11
DX: D25.9 Leiomyoma of uterus, unspecified (principal); N93.9 Abnormal uterine and vaginal bleeding, unspecified; I10 Essential (primary) hypertension; Z79.899 Other long term (current) drug therapy
CPT/HCPCS: 36415; 76856; 80048; 80076; 81000; 81001; 81015; 83690; 84484; 85025; 85610; 85730; 86886; 86900; 86901; 87086; 87186; 99284